=== PATIENT | male | born 1970 | race Caucasian/White ===

== ENCOUNTER 2016-11-12 22:50 | Emergency (ER) | payer OTHER ==
[2016-11-12 23:02] VITALS: RESP 16
--- NOTE | 2016-11-12 23:22 | ED ---
General Adult HPI - General Chief complaint: Psychiatric Symptoms Stated complaint: Mental Health Time Seen by Provider: 11/12/16 22:55 Source: patient, RN notes reviewed Mode of arrival: ambulatory Limitations: no limitations - History of Present Illness Initial comments: This is a 45-year-old male who presents to the emergency department stating that he is having suicidal thoughts. Patient states addict crack cocaine and keeps messing up his family and his job any sick of it. Patient states he just did crack cocaine about 5 hours ago and he cannot get the suicidal thoughts out of his head. Patient states he left rehab early 5 days ago. Patient states he has done that on multiple occasions. Patient denies any alcohol use. Patient states he wanted to slice his wrists he does have some superficial cuts to his left wrist but he states he was not breathing and to cut always through. Patient denies taking any other drugs. Patient denies any other attempt towards suicide today. Patient denies any physical complaints today. Patient denies headache patient denies numbness weakness. Patient denies any lightheadedness or dizziness. Patient denies chest pain or palpitations. Patient denies shortness of breath or difficulty breathing. Patient denies abdominal pain patient denies nausea vomiting diarrhea - Related Data Allergies Allergy/AdvReac Type Severity Reaction Status Date / Time No Known Allergies Allergy Verified 11/12/16 23:02 Review of Systems ROS Statement: Those systems with pertinent positive or pertinent negative responses have been documented in the HPI. ROS Other: All systems not noted in ROS Statement are negative. Past Medical History Past Medical History: No Reported History History of Any Multi-Drug Resistant Organisms: None Reported Past Surgical History: No Surgical Hx Reported Past Psychological History: Depression Smoking Status: Current every day smoker Past Alcohol Use History: Occasional Past Drug Use History: Cocaine, Marijuana General Exam - General Exam Comments Initial Comments: GENERAL: Patient is well-developed and well-nourished. Patient is nontoxic and well- hydrated and is in no acute distress. ENT: Neck is soft and supple. No significant lymphadenopathy is noted. Oropharynx is clear. Moist mucous membranes. Neck has full range of motion without eliciting any pain. EYES: The sclera were anicteric and conjunctiva were pink and moist. Extraocular movements were intact and pupils were equal round and reactive to light. Eyelids were unremarkable. PULMONARY: Unlabored respirations. Good breath sounds bilaterally. No audible rales rhonchi or wheezing was noted. CARDIOVASCULAR: There is a regular rate and rhythm without any murmurs gallops or rubs. ABDOMEN: Soft and nontender with normal bowel sounds. No palpable organomegaly was noted. There is no palpable pulsatile mass. SKIN: Skin is clear with no lesions or rashes and otherwise unremarkable. NEUROLOGIC: Patient is alert and oriented x3. Cranial nerves II through XII are grossly intact. Motor and sensory are also intact. Normal speech, volume and content. Symmetrical smile. MUSCULOSKELETAL: Normal extremities with adequate strength and full range of motion. No lower extremity swelling or edema. No calf tenderness. LYMPHATICS: No significant lymphadenopathy is noted PSYCHIATRIC: Patient states he suicidal because he can't stop doing crack cocaine Limitations: no limitations Course Vital Signs 11/12/16 11/13/16 22:53 01:45 Temperature 98.9 F Pulse Rate 75 74 Respiratory 16 16 Rate Blood Pressure 128/93 112/70 O2 Sat by Pulse 95 100 Oximetry Medical Decision Making - Medical Decision Making EPS evaluated the patient and spoke with the psychiatrist and determined that the patient needed to follow up as an outpatient patient was in agreement with this - Lab Data Lab Results 11/13/16 Range/Units 01:45 Urine Opiates Screen Not Detected (NotDetected) Ur Oxycodone Screen Not Detected (NotDetected) Urine Methadone Screen Not Detected (NotDetected) Ur Propoxyphene Screen Not Detected (NotDetected) Ur Barbiturates Screen Not Detected (NotDetected) U Tricyclic Antidepress Not Detected (NotDetected) Ur Phencyclidine Scrn Not Detected (NotDetected) Ur Amphetamines Screen Not Detected (NotDetected) U Methamphetamines Scrn Not Detected (NotDetected) U Benzodiazepines Scrn Not Detected (NotDetected) Urine Cocaine Screen Detected H (NotDetected) U Marijuana (THC) Screen Not Detected (NotDetected) Disposition Clinical Impression: Depression, Cocaine abuse Disposition: HOME SELF-CARE Condition: Good Instructions: Cocaine Abuse (ED), Depression (ED) Referrals: None,Stated [Primary Care Provider] - 1-2 days Time of Disposition: 02:20
[2016-11-13] MEDS ORDERED: DIPH,PERTUS(ACELL)TETVAC-LF 0.5 ML VIAL IM ONE (00:02)
[2016-11-13 01:46] VITALS: BP 112/70
[2016-11-13 02:24] VITALS: PULSE 70; TEMP 98
== END 2016-11-13 02:23 | disposition home or self-care (01) ==
LOC: EC 22:50
DX: F32.9 Major depressive disorder, single episode, unspecified (principal); F14.10 Cocaine abuse, uncomplicated; F17.200 Nicotine dependence, unspecified, uncomplicated; Z23 Encounter for immunization
CPT/HCPCS: 80306; 82075; 90471; 90715; 99284